=== PATIENT | female | born 1985 | race Caucasian/White ===

== ENCOUNTER 2016-08-22 11:20 | Emergency (ER) | payer OTHER ==
[~2016-08-22] VITALS: Wt 63.6 kg
[~2016-08-22 11:20] MED LIST: BACTDS PO; CEPH-443 PO; IBUP-727 PO
[2016-08-22 12:41] LABS: URINE BLOOD (Dip) POC Negative (NEGATIVE)
[2016-08-22] MEDS ORDERED: CEPH-443 PO (12:56)
[2016-08-22] MEDS ORDERED: PHEN-538 PO (12:56)
[2016-08-22] MEDS ORDERED: CEPHALEXIN 500 MG CAP PO ONE (13:00)
[2016-08-22] MEDS ORDERED: PHENAZOPYRIDINE 100 MG TAB PO ONE (13:00)
--- NOTE | 2016-08-22 13:00 | ERD ---
ER Documentation Chief Complaint Date/Time DATE: 08/22/16 TIME: 12:58 Chief Complaint states "uti" HPI 31-year-old female presents with a 2 day history of burning with urination and frequency. She denies fevers, flank pain. She feels nauseous without vomiting. She denies any known STD exposures but is requesting to be checked. She has a right or left lower abdominal pain. She denies any vaginal discharge. ROS All systems reviewed and are negative except as per history of present illness. Medications Home Meds Active Scripts Phenazopyridine Hcl* (Pyridium*) 200 Mg Tab, 200 MG PO TID Y for URINARY PAIN, # 6 TAB Prov:MAURICIO ROCA MD 08/22/16 Cephalexin* (Keflex*) 500 Mg Capsule, 500 MG PO QID for 5 Days, CAP Prov:MAURICIO ROCA MD 08/22/16 Sulfamethoxazole-Trimethoprim* (Bactrim* DS) 800-160 Mg Tab, 1 TAB PO BID for 5 Days, TAB Prov:Ena Perez PA-C 03/23/16 Cephalexin* (Keflex*) 500 Mg Capsule, 500 MG PO QID for 5 Days, CAP Prov:Ena Perez PA-C 03/23/16 Reported Medications Ibuprofen (Motrin) 600 Mg Tablet, 600 MG PO Y 11/17/12 Allergies Allergies: Coded Allergies: No Known Allergy (Unverified , 03/29/13) PMhx/Soc History of Surgery: No Anesthesia Reaction: No Hx Neurological Disorder: No Hx Respiratory Disorders: No Hx Cardiac Disorders: No Hx Psychiatric Problems: No Hx Miscellaneous Medical Probl: No Hx Alcohol Use: No Hx Substance Use: Yes (METH IV) Hx Tobacco Use: No Physical Exam Vitals Vital Signs Date Time Temp Pulse Resp B/P Pulse Ox O2 Delivery O2 Flow Rate FiO2 08/22/16 11:47 98.3 104 20 116/67 99 Physical Exam Const: [] Alert, [id number] Head: Atraumatic Eyes: Normal Conjunctiva ENT: Normal External Ears, Nose and Mouth. Neck: Full range of motion..~ No meningismus. Resp: Clear to auscultation bilaterally Cardio: Regular rate and rhythm, no murmurs Abd: Soft, minimal suprapubic tenderness. No tenderness at McBurney's point no rebound. non distended. Normal bowel sounds Skin: No petechiae or rashes Back: No midline or flank tenderness Ext: No cyanosis, or edema Neur: Awake and alert Psych: Normal Mood and Affect Results 24 hrs Laboratory Tests Test 08/22/16 12:41 Bedside Urine pH (LAB) 6.5 Bedside Urine Protein (LAB) 1+ Bedside Urine Glucose (UA) Negative Bedside Urine Ketones (LAB) Trace Bedside Urine Blood Negative Bedside Urine Nitrite (LAB) Negative Bedside Urine Leukocyte Esterase (L Trace Current Medications Medications (Trade) Dose Ordered Sig/[place] Route PRN Reason Start Time Stop Time Status Last Admin Dose Admin Cephalexin (Keflex) 500 mg ONCE ONCE PO 08/22/16 13:00 08/22/16 13:01 Phenazopyridine HCl (Pyridium) 200 mg ONCE ONCE PO 08/22/16 13:00 08/22/16 13:01 Procedures/MDM HCG is negative. Urine shows leukocytes without nitrites, glucose, hemoglobin. There is trace ketones and protein. patient was given Keflex and Pyridium will be discharged home with a prescription of Keflex, Pyridium, instructions for clear fluids and instructions to return for fevers, vomiting, new worsening symptoms with primary doctor this week. The patient was stable with no new complaints during the ER course. Clinically, there is no current evidence to suggest meningitis, sepsis, acute abdomen, pneumonia, acute coronary syndrome, pulmonary embolism, or any other emergent condition appearing to require further evaluation or hospitalization. The patient should certainly return for any new or worsening symptoms per the aftercare instructions. They should otherwise follow-up with her primary care doctor for reevaluation this week. Departure Diagnosis: Primary Impression: UTI (urinary tract infection) Urinary tract infection type: acute cystitis Hematuria presence: without hematuria Qualified Code: N30.00 - Acute cystitis without hematuria Condition: Stable Patient Instructions: Understanding Urinary Tract Infections (UTIs) Additional Instructions: Drink plenty of fluids at home. Recheck for new or worsening symptoms or primary care doctor. STD results pending which should be available within the next week. MAURICIO ROCA MD Aug 22, 2016 13:00
== END 2016-08-22 13:06 | disposition home or self-care (01) ==
LOC: FTE 11:20
DX: N30.00 Acute cystitis without hematuria (principal)
CPT/HCPCS: 81003; 87591; Z7502; Z7610; 99283